=== PATIENT | male | born 1970 | race Caucasian/White ===

== ENCOUNTER → 2021-07-17 02:57 | Outpatient (CLI) | payer SELFPAY ==
[2021-07-17 19:47] LABS: SARS-CoV-2 RNA PCR Negative
== END ==
PROVIDERS: PCP Family Medicine Adolescent Medicine; Visit Provider Physician Assistant
DX: R53.83 Other fatigue (principal); R09.81 Nasal congestion; Z20.822 Contact with and (suspected) exposure to COVID-19
CPT/HCPCS: C9803; U0003; U0005

== ENCOUNTER 2023-10-13 09:58 | Outpatient (CLI) | payer OTHER, SELFPAY ==
--- NOTE | ~2023-10-13 | XR_ITS ---
Lumbosacral Spine: AP and lateral views Clinical History: Pain Findings: The normal lordotic curve is maintained. 12 mm anterolisthesis of L4 over L5 present, with severe degenerative disc narrowing at L4-L5. There is severe facet arthropathy throughout the lumbar spine, especially the lower lumbar spine. The sacroiliac joints are normally outlined. Impression: 4 mm anterolisthesis of L4 over L5, similar to prior exam. Advanced degenerative spondylosis, especially the lower lumbar spine, as above. Reviewed, dictated and finalized at location M. Impression: 4 mm anterolisthesis of L4 over L5, similar to prior exam. Advanced degenerative spondylosis, especially the lower lumbar spine, as above.
== END 2023-10-13 09:59 ==
LOC: MICIMG 09:59
PROVIDERS: PCP Family Medicine Adolescent Medicine; Visit Provider Nurse Practitioner Family
DX: M47.896 Other spondylosis, lumbar region (principal)
CPT/HCPCS: 72100